=== PATIENT | female | born 1990 | race African-American/Black ===

== ENCOUNTER 2018-03-31 13:46 | Emergency (ER) | payer SELFPAY ==
[~2018-03-31] VITALS: Ht 172.7 cm; Wt 68.0 kg
[2018-03-31 14:01] VITALS: BP 117/72
== END 2018-03-31 17:15 | disposition left against medical advice (07) ==
LOC: ER 16:53
DX: Z53.21 Procedure and treatment not carried out due to patient leaving prior to being seen by health care provider (principal)